=== PATIENT | female | born 1955 | race Caucasian/White ===

== ENCOUNTER 2016-06-03 08:40 | Outpatient (RCR) | payer OTHER ==
[~2016-06-03] VITALS: Ht 154.9 cm; Wt 63.5 kg
[2016-06-03] MEDS ORDERED: Ketorolac 30mg Inj ONE (08:41)
[2016-06-03] MEDS ORDERED: NS 550ML IV ONE (08:41)
[2016-06-03] MEDS ORDERED: Succinylcholine 20mg/ml 10ml vial ONE (08:41)
[2016-06-03] MEDS ORDERED: Methohexital Sodium Syr 100mg/10ml IVP ONE (08:41)
[2016-06-03] MEDS ORDERED: Atropine Sulfate 0.4mg/ml inj IVP PRN (10:37)
== END 2016-06-26 | disposition home or self-care (01) ==
LOC: ECT 08:40
DX: F31.63 Bipolar disorder, current episode mixed, severe, without psychotic features (principal)
CPT/HCPCS: 90870; J0330; J1885; J7040

== ENCOUNTER 2016-08-19 05:08 | Outpatient (RCR) | payer OTHER ==
[~2016-08-19] VITALS: Ht 154.9 cm; Wt 63.5 kg
[2016-08-19] MEDS ORDERED: Succinylcholine 20mg/ml 10ml vial ONE (05:09)
[2016-08-19] MEDS ORDERED: Methohexital Sodium Syr 100mg/10ml IVP ONE (05:09)
[2016-08-19] MEDS ORDERED: Ketorolac 30mg Inj ONE (05:09)
[2016-08-19] MEDS ORDERED: NS 550ML IV ONE (05:09)
== END 2016-08-26 | disposition home or self-care (01) ==
LOC: ECT 05:08
DX: F31.63 Bipolar disorder, current episode mixed, severe, without psychotic features (principal)
CPT/HCPCS: 90870; J0330; J1885; J7040